=== PATIENT | female | born 1945 | race Caucasian/White ===

== ENCOUNTER 2016-11-02 17:04 | Emergency (ER) | payer OTHER ==
[~2016-11-02] VITALS: Ht 162.6 cm; Wt 79.3 kg
[2016-11-02 17:39] LABS: HEMATOCRIT 40.7 % (36.0-46.0); MCH 28.6 PG (29.0-34.0); MCHC 31.9 G/DL (30.0-36.0); MCV 89.6 FL (83-99); MEAN PLAT.VOLUME 11.2 uM^3 (9.5-12.4); PLATELET COUNT 315 K/uL (156-360); RED BLOOD COUNT 4.54 M/uL (3.80-5.20); WHITE BLOOD COUNT 15.8 K/uL (4.1-10.2)
[2016-11-02 17:48] LABS: CHLORIDE 105 mEq/L (99-109); SODIUM 143 mEq/L (136-147)
[2016-11-02 17:50] LABS: GLUCOSE 116 mg/dL (70-99)
[2016-11-02 17:51] LABS: ANION GAP 12 MEQ/L (2-14)
[2016-11-02 17:54] LABS: GFR ESTIMATE (CALCULATED) 40 mL/min/; UREA NITROGEN (BUN) 32 mg/dL (9-23)
[2016-11-02 17:56] LABS: ADD MIUA? YES; BILIRUBIN NEGATIVE; BLOOD LARGE; COLOR AMBER ((YELLOW)); GLUCOSE (STRIP) NEGATIVE; KETONES NEGATIVE; LEUKOCYTES SMALL; NITRITE NEGATIVE; PROTEIN (STRIP) 30; SPECIFIC GRAVITY 1.014 (1.000-1.030); UROBILINOGEN 0.2 MG/DL (0.2-1.0)
[2016-11-02 18:17] LABS: BACTERIA NONE SEEN /HPF; EPITHELIAL CELLS RARE /HPF; MUCUS TRACE /LPF; RED BLOOD CELLS TNTC /HPF (0-5); UCUL ADDED? NO; WHITE BLOOD CELLS 20-30 /HPF (0-5)
[2016-11-02] MEDS ORDERED: NITROFURANTOIN100 M3 PO (18:25)
[2016-11-02] MEDS ORDERED: HYDROCHLOROTHIA25 MG PO (18:25)
[2016-11-02] MEDS ORDERED: PHENAZOPYRIDIN100 MG PO (18:25)
[2016-11-02] MEDS ORDERED: AMLODIPINE BESYL5 MG PO (18:26)
[2016-11-02] MEDS ORDERED: LISINOPRIL40 MG PO (18:26)
[2016-11-02] MEDS ORDERED: METOPROLOL SUC100 MG PO (18:26)
[2016-11-02] MEDS ORDERED: CALCIUM 500 MG1 EACH PO (18:27)
[2016-11-02] MEDS ORDERED: DAILY VALUE1 EACH PO (18:28)
[2016-11-02 18:39] LABS: TOTAL BILIRUBIN 0.5 mg/dL (0.0-1.0)
[2016-11-02 18:40] LABS: ALKALINE PHOSPHATASE 85 IU/L (3-129)
[2016-11-02 18:42] LABS: DIRECT BILIRUBIN 0.2 mg/dL (0.0-0.3)
[2016-11-02 18:43] LABS: LIPASE 30 U/L (1.0-51.0)
[2016-11-02] MEDS ORDERED: TORADOL10 MG PO (21:04)
[2016-11-02] MEDS ORDERED: FLOMAX0.4 MG PO (21:04)
[2016-11-02] MEDS ORDERED: LEVAQUIN750 MG PO (21:05)
[2016-11-02] MEDS ORDERED: ZOFRAN4 MG PO (21:05)
[2016-11-02] MEDS ORDERED: PERCOCET 5/31 TABLET PO (21:05)
[2016-11-02 22:20] VITALS: BP 160/71
== END 2016-11-02 22:22 | disposition home or self-care (01) ==
LOC: EME 17:04
DX: N20.0 Calculus of kidney (principal); N30.00 Acute cystitis without hematuria; I10 Essential (primary) hypertension; R73.03 Prediabetes
CPT/HCPCS: 74176; 80048; 80076; 81003; 83690; 85027; 99281; 99285; J0696; J7030; J7050

== ENCOUNTER → 2016-11-09 | Outpatient (CLI) | payer MEDICARE ==
[~2016-11-09] MED LIST: AMLODIPINE BESYL5 MG PO; CALCIUM 500 MG1 EACH PO; DAILY VALUE1 EACH PO; FLOMAX0.4 MG PO; HYDROCHLOROTHIA25 MG PO; LEVAQUIN750 MG PO; LISINOPRIL40 MG PO; METOPROLOL SUC100 MG PO; NITROFURANTOIN100 M3 PO; PERCOCET 5/31 TABLET PO; PHENAZOPYRIDIN100 MG PO; TORADOL10 MG PO; ZOFRAN4 MG PO
== END | disposition home or self-care (01) ==
LOC: CDC 10:47
DX: Z01.810 Encounter for preprocedural cardiovascular examination (principal)
CPT/HCPCS: 93000